=== PATIENT | female | born 1985 ===

== ENCOUNTER 2018-06-28 11:53 | Emergency (ER) | payer MEDICAID ==
--- NOTE | 2018-06-28 14:27 | ED PDOC ---
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 Patient reports she ate peanuts earlier today and thinks the allergic reaction is from that. Denies shortness of breath or rash. She states she has itching on the neck and has facial swelling. PMD: none provided Past Medical History Reviewed: Historical Data, Nursing Documentation, Vital Signs Vital Signs: Last Vital Signs Temp 98.8 F 06/28/18 11:56 Pulse 94 H 06/28/18 11:56 Resp 18 06/28/18 11:56 BP 143/79 06/28/18 11:56 Pulse Ox 99 06/28/18 11:56 - Medical History PMH: No Chronic Diseases - Surgical History Surgical History: Tonsillectomy - Family History Family History: States: Unknown Family Hx - Home Medications Home Medications: Ambulatory Orders Medication Instructions Recorded Prednisone 50 mg PO DAILY #3 tablet 06/28/18 - Allergies Allergies/Adverse Reactions: Allergies Allergy/AdvReac Type Severity Reaction Status Date / Time No Known Allergies Allergy Verified 06/28/18 11:59 Review of Systems ROS Statement: Except As Marked, All Systems Reviewed And Found Negative Respiratory: Negative for: Shortness of Breath Skin: Positive for: Other (Facial swelling and itching; itching to the neck). Negative for: Rash Physical Exam - Reviewed Nursing Documentation Reviewed: Yes Vital Signs Reviewed: Yes - Physical Exam Appears: Positive for: Non-toxic, No Acute Distress Head Exam: Positive for: ATRAUMATIC, NORMOCEPHALIC Skin: Positive for: Normal Color, Warm, Dry Eye Exam: Positive for: Normal appearance Neck: Positive for: Normal, Painless ROM Cardiovascular/Chest: Positive for: Regular Rate, Rhythm Respiratory: Positive for: Normal Breath Sounds. Negative for: Wheezing, Respiratory Distress Extremity: Positive for: Normal ROM Neurologic/Psych: Positive for: Alert, Oriented. Negative for: Motor/Sensory Deficits Comments: Facial swelling - ECG O2 Sat by Pulse Oximetry: 99 (RA) Pulse Ox Interpretation: Normal - Progress Re-evaluation Time: 17:03 Condition: Re-examined, Improved Disposition - Clinical Impression Clinical Impression: Allergic reaction, Angioedema - Patient ED Disposition Is Patient to be Admitted: No Doctor Will See Patient In The: Office Counseled Patient/Family Regarding: Studies Performed, Diagnosis, Need For Followup - Disposition Referrals: [facility] [Outside] Disposition: Routine/Home Disposition Time: 16:30 Condition: GOOD Additional Instructions: OLAMIDE BOCANEGRA, thank you for letting us take care of you today. Your provider was Marco Bernardo MD and you were treated for POSS ALLERGIC REACTION. The emergency medical care you received today was directed at your acute symptoms. If you were prescribed any medication, please fill it and take as directed. It may take several days for your symptoms to resolve. Return to the Emergency Department if your symptoms worsen, do not improve, or if you have any other problems. Please contact your doctor or call one of the physicians/clinics you have been referred to that are listed on the Patient Visit Information form that is included in your discharge packet. Bring any paperwork you were given at discharge with you along with any medications you are taking to your follow up visit. Our treatment cannot replace ongoing medical care by a primary care provider outside of the emergency department. Thank you for allowing the [facility] team to be part of your care today. If you had an X-Ray or CT scan: A Radiologist will review the ED reading if any change in treatment is needed we will contact you. If you had a blood, urine, or wound culture: It will take several days for the results, if any change in treatment is needed we will contact you. If you had an STI test: It will take 48 hours for the results. Please call after 1 week if you have not heard back. Prescriptions: Prednisone 50 mg PO DAILY #3 tablet Instructions: Angioedema (DC) MDMA - Impression/Plan/Differential Dx Note:: Initial Impression: allergic reaction, angioedema of the face Initial Plan: --Benadryl 25mg PO --Pepcid 20mg PO --Prednisone 60mg PO 15:25 Upon reevaluation, patient reports improvement in facial swelling. She still reports palpitations and difficulty breathing. EKG ordered. Scribe Attestation: Documented by Francisco Raman acting as a scribe for Marco Bernardo MD. Provider Scribe Attestation: All medical record entries made by the Scribe were at my direction and personally dictated by me. I have reviewed the chart and agree that the record accurately reflects my personal performance of the history, physical exam, medical decision making, and the department course for this patient. I have also personally directed, reviewed, and agree with the discharge instructions and disposition.
[2018-06-28] MEDS ORDERED: Albuterol 0.083% Inhal Sol (2.5 mg/3 mL) UD ONE (15:23)
[2018-06-28 18:30] VITALS: BP 124/76; PULSE 84; RESP 19; TEMP 98.7; O2SAT 100
--- NOTE | 2018-06-29 21:51 | CARD ---
APPROVED REPORT Date of service: 06/28/2018 EKG Measurement Heart [id number] <Conclusion> Normal sinus rhythm Possible Left atrial enlargement Borderline ECG
== END 2018-06-28 17:41 | disposition home or self-care (01) ==
LOC: H.ER 11:53
DX: T78.3XXA Angioneurotic edema, initial encounter (principal)